=== PATIENT | male | born 1980 | race Caucasian/White ===

== ENCOUNTER 2019-09-12 01:27 | Inpatient (IN) | payer OTHER ==
[~2019-09-12] VITALS: Ht 175.3 cm; Wt 86.2 kg
[2019-09-12 01:30] VITALS: Ht 175.3 cm; Wt 86.2 kg
--- NOTE | 2019-09-12 01:31 | NUR ---
PATIENT BIB AMBULANCE TO ED WITH C/C OF HEMATEMESIS PIPING ENGINEER TO ED. PER MEDIC, PATIENT VOMITED "100CC'S OF BRIGHT RED BLOOD" PIPING ENGINEER TO ED. PATIENT NOTED TO HAVE BLOOD ON LIPS AND TEETH. PATIENT, FROM [facility], REPORTS HE HAS HAD "BLACK STOOLS" X2 DAYS AND ABDOMINAL PAIN X1 DAY. PATIENT IS NOT ACTIVELY VOMITING AT THIS TIME. EMESIS BAG PROVIDED. PATIENT COMPLAINING OF ABDOMINAL PAIN, APPEARS PALE, SKIN COOL TO TOUCH. PATIENT REPORTS NO PREVIOUS HX OF SIMILAR EPISODE. PATIENT DENIES FEVER, COUGH, OR ANY OTHER RELATED OR ABNORMAL SYMPTOMS. PATIENT PLACED ON FULL BUCKLE AND BUTTON MAKER AND PULSE OX. TWO IV'S ESTABLISHED. DR. SMITH AT BEDSIDE FOR MSE.
[2019-09-12 02:05] LABS: BASOPHIL % 0.4 % (0-2); BILIRUBIN TOTAL 0.52 mg/dL (0.20-1.00); CALCIUM 7.6 mg/dL (8.5-10.1); CARBON DIOXIDE 15.6 mmol/L (21-32); CREATININE SERUM 1.4 mg/dL (0.7-1.3); PLATELET COUNT 99 x10^3mcL (130-400); RED CELL DISTRIBUTION WIDTH 13.4 % (11.5-14.5)
[2019-09-12 02:08] LABS: ALBUMIN 2.5 g/dL (3.4-5.0); TOTAL PROTEIN, SERUM 5.7 g/dL (6.4-8.2)
[2019-09-12 02:09] LABS: POTASSIUM SERUM 2.6 mmol/L (3.5-5.1)
--- NOTE | 2019-09-12 02:36 | NUR ---
PATIENT MEDICATED PER MD ORDER. PT VERBALIZED UNDERSTANDING OF MEDICATION PRIOR TO ADMINISTRATION. PATIENT'S SANDOSTATIN MOVED TO LEFT WRIST 20GAUGH IV.
[2019-09-12] MEDS ORDERED: COG1 PO (03:11)
[2019-09-12] MEDS ORDERED: [UNRECOGNIZED DRUG - CODE] IM (03:12)
[2019-09-12] MEDS ORDERED: MIRTAZAPINE45 M2 PO (03:13)
[2019-09-12] MEDS ORDERED: KRISTALOSE20 GM PO (03:13)
[2019-09-12] MEDS ORDERED: PRAZOSIN HCL2 MG PO (03:14)
[2019-09-12] MEDS ORDERED: OMEPRAZOLE20 M4 PO (03:14)
[2019-09-12] MEDS ORDERED: PROPRANOLOL HCL10 MG PO (03:15)
[2019-09-12] MEDS ORDERED: RISPERIDONE3 M2 PO (03:15)
--- NOTE | 2019-09-12 03:25 | NUR ---
PATIENT RESTING IN GURNEY COMFORTABLY, IN NO VISIBLE PAIN OR DISCOMFORT, RESP E/U, NAD NOTED.
--- NOTE | 2019-09-12 03:45 | NUR ---
PATIENT MOVED TO BED 3 DUE TO TELE HOLD STATUS. CIM PRODUCT DEVELOPER CRUZ AT BEDSIDE.
--- NOTE | 2019-09-12 04:03 | NUR ---
DR. RENTERIA AWARE OF PATIENT MEETING SEPTIC CRITERIA, RECEIVED TELEPHONE READ BACK ORDER FOR ADDITONAL LITER OF FLUID AND LACTIC ACID DRAW.
--- NOTE | 2019-09-12 04:05 | NUR ---
SECOND LITER OF NS INITIATED PER SEPSIS PROTOCOL.
--- NOTE | 2019-09-12 04:45 | NUR ---
DR. SIMONS MADE AWARE OF PATIENT'S LACTIC ACID 11.3. PER BHAVANA COSTA FOR LAB TO DRAW BLOOD CULTURES AT 10AM. NO ORDERS ANTICIPATED AT THIS TIME.
--- NOTE | 2019-09-12 04:48 | NUR ---
SPOKE WITH DR. SIMONS AGAIN TO VERIFY IF HE WOULD LIKE TO ORDER AN ANTIBIOTIC AT THIS TIME. PER DR. SIMONS, NO ORDERS WILL BE IMPLEMENTED AT THIS TIME.
--- NOTE | 2019-09-12 05:31 | NUR ---
PATIENT IS RESTING COMFORTABLY IN GURNEY, AWAKE, AAOX4, RESP E/U, IN NO APPARENT PAIN, NAD NOTED. CORRECTIONAL OFFICERS AT BEDSIDE.
--- NOTE | 2019-09-12 06:16 | NUR ---
PATIENT REQUESTED TO USE RESTROOM. PROVIDED WITH URINAL, APPROX 150CC'S OF CLEAR, YUDITH URINE PRODUCED. URINE SAMPLE IN URINE ROOM.
--- NOTE | 2019-09-12 07:15 | NUR ---
REPORT GIVEN TO JONATHON XIE TO ASSUME CARE OF PT.
--- NOTE | 2019-09-12 07:20 | NUR ---
RECIEVED REPORT FROM MARIA INES XIE. WILL ASSUME CARE OF PT. PT CURRENTLY LYING IN POSITION OF COMFORT IN ER [facility] WITH TWO GUARDS AT BEDSIDE. PT NOTED BILATERAL LEG HANDCUFFS IN PLACE. NO ACUTE DISTRESS NOTED AT THIS TIME. WILL CONTINUE TO MONITOR.
--- NOTE | 2019-09-12 07:22 | NUR ---
REPORT GIVEN SALVADOR XIE TO ASSUME CARE OF PT.
--- NOTE | 2019-09-12 08:00 | NUR ---
RECEIVED PT FROM ED. AOX4 ABLE TO MAKE NEEDS KNOWN. ON TELE 16# ST AT 141 AFTER AMBULATING TO BATHROOM. LUNGS CTA, DENIES SOB/COUGH AT THE TIME. BOWEL SOUNDS ACTIVE, ABODMEN SOFT/ROUND, DENIES N/V/D. C/O DARK BLOODY STOOL. VOIDS FREELY. SKIN INTACT, DENIES PAIN AT THIS TIME. IV TO RAC, LAC, AND RW PATENT, ALL INFUSING. CALL LIGHT IN REACH, WILL CONTINUE TO MONITOR.
--- NOTE | 2019-09-12 09:30 | NUR ---
PT SEEN BY DR MEJIA. ORDERED EGD. CONSENT AND CHECKLIST DONE. PT TAKEN DOWN FOR PROCEDURE.
[2019-09-12 12:12] VITALS: BP 94/57
--- NOTE | 2019-09-12 15:16 | NUR ---
NEW ORDER FROM DR. SIMONS TO TEST FOR COVID-19. SPECIMEN COLLECTED AND TAKEN TO LAB. PER CASE MANAGEMENT, PT TESTED POSITIVE ON 08/15/19. PT STATED HE WAS ON ISOLATION FOR 2 WEEKS.
[2019-09-12 16:54] VITALS: BP 95/46
[2019-09-12 19:25] VITALS: BP 108/53
--- NOTE | 2019-09-12 19:25 | NUR ---
RECEIVED PT AWAKE ALERT AND VERBALLY RESPONSIVE.BREATHING EASY AND NON-LABORED.DENIES CHESTPAIN AT THIS TIME.BP 108/53 MMHG,HR 120'S.ENCOURAGED BEDREST AT THIS TIME.HR GOES HIGH ON ACTIVITY.DENIES ABDOMINAL PAIN.NO N/V NOTED.STILL WITH EPISODES OF BLOODY STOOL.S/P EGD TODAY.SANDOSTATIN DRIP @ 25 ML/HR INFUSING.K-RIDER INFUSING ALSO AND TOLERATING WELL.BSC AND URINALS PROVIDED.GUARDS AT BEDSIDE.WILL CONTINUE TO MONITOR.
--- NOTE | 2019-09-12 21:40 | NUR ---
RECEIVED A CALL FROM [place] .BED COORDINATOR FOR [facility].PT ACCEPTED BUT NO ROOM AVAILABLE YET AT THIS TIME.
--- NOTE | 2019-09-13 04:37 | NUR ---
PT SLEPT WELL ALL NIGHT WITH GUARDS AT BEDSIDE.DENIES CHESTPAIN.ASSISTED TO BSC AND HAD A WATERY REDDISH COLORED BM X2.SANDOSTATIN DRIP @ 25 ML/HR.ON D5NS WITH 20K @ 125 ML/HR AND TOLERATING WELL.NO N/V NOTED.NO CALLS RECEIVED FROM [facility] FOR POSSIBLE ROOM.ALL NEEDS MET.WILL CONTINUE TO MONITOR.
[2019-09-13 06:09] VITALS: BP 96/43
--- NOTE | 2019-09-13 06:10 | NUR ---
LATEST BP THIS AM @ 96/43 MG/DL.IV TO L WRIST WITH SOME TENDERNESS AND SWELLING.ICE PACKS APPLIED.RECIVED A CALL FROM IRENE FROM [facility] AND GAVE A ROOM @ UN[address] BED 2515.PHONE #[phone].WILL INFORM
[2019-09-13 06:17] VITALS: BP 96/43
--- NOTE | 2019-09-13 06:58 | NUR ---
REPORT GIVEN TO GABE-RN.ALL INFORMATION PROVIDED.WILL ENDORSE TO AM NURSE.
--- NOTE | 2019-09-13 07:49 | NUR ---
RECEIVED PT FROM PM NURSE. PT IS AWAKE AND RESTING COMFORTABLY IN BED AT THIS TIME. ABLE TO MAKE NEEDS KNOWN. PT IS A/OX4. LUNG SOUNDS CTA. BREATHING E/U ON RA. TELE #16. DENIES CP/PRESSURE. PULSES EVEN AND PALPABLE. NO EDEMA NOTED. ACTIVE BSX4. ABD SOFT AND ROUND. LBM WAS 09/13/19. REPORTS BLOOD IN STOOL. VOIDS FREELY. URINAL AND BSC BY BEDSIDE. GENERALIZED WEAKNESS NOTED. SKIN INTACT. NO C/O PAIN AT THIS TIME. IV 18G ON LAC CURRENTLY INFUSING D5NS WITH 20 MEQ K AT 125ML AND SANDOSTATIN DRIP RUNNING AT 25ML/HR. BED AT THE LOWEST POSITION. CALL LIGHT WITHIN REACH. GUARDS AT BEDSIDE. WILL CONTINUE TO MONITOR.
--- NOTE | 2019-09-13 08:30 | NUR ---
SPOKE TO [facility] GUARD TO ARRANGE ABDIEL CAR TRANSPORT FOR PT TRANSFER TO [facility] AND THEN CALLED CASE MANAGEMENT TO ARRANGE MEDICAL TRANSPORT.
--- NOTE | 2019-09-13 08:33 | NUR ---
RECEIVED A CALL FROM SERGEANT REDDY AND MADE HIM AWARE THAT ABDIEL CAR NEEDED FOR TRANSFER AND I TRANSFERRED HIM AT THE [facility] TO COORDINATED THE ABDIEL CAR TIME. RACHELE XIE ASSIGNED TO THIS PT MADE AWARE OF ABOVE.
[2019-09-13 08:59] VITALS: BP 93/33
[2019-09-13 10:05] LABS: CALCIUM 6.8 mg/dL (8.5-10.1); CARBON DIOXIDE 23.6 mmol/L (21-32); CHLORIDE SERUM 113 mmol/L (98-107); GFR1 > 60 mL/min; GLUCOSE SERUM 146 mg/dL (74-106); POTASSIUM SERUM 4.1 mmol/L (3.5-5.1); SODIUM SERUM 143 mmol/L (136-145)
--- NOTE | 2019-09-13 10:10 | NUR ---
RECEIVED CALL FROM [facility] THAT THEY WILL BE ARRIVING AT APPROXIMATELY 10AM. NOTIFIED GUARDS OF THE ETA. GUARDS ACKNOWLEDGED AND INFORMED ME THAT THE ABDIEL CAR WILL BE ARRIVING AT 10AM WELL. IV AND TELE MONITOR REMOVED.
--- NOTE | 2019-09-13 10:20 | NUR ---
[facility] ARRIVED AND PICKED UP PT VIA GURNEY WITH 3 EMT ASSISTS. PT LEFT IN STABLE CONDITION ACCOMPANIED BY GUARDS. LAST SET OF VITALS ARE FOLLOWS: 99.2 108/64 100 18 96%.
[2019-09-13 10:30] LABS: PLATELET COUNT 71 x10^3mcL (130-400); RED CELL DISTRIBUTION WIDTH 14.9 % (11.5-14.5)
[2019-09-13 11:31] LABS: BAND NEUTROPHIL 1 % (0-10); MONOCYTE 5 % (0-7); SEGMENTED NEUTROPHILS 71 % (37-75); rbc morphology (normal/abnorm) ABNORMAL (NORMAL)
== END 2019-09-13 10:20 | disposition short-term general hospital (02) | DRG 432 ==
LOC: ED 01:27 → DU 02:33
PROVIDERS: Internal Medicine Gastroenterology; Specialist; ADMIT Internal Medicine; ATTEND Internal Medicine
PROC: 0DB68ZX Excision of Stomach, Via Natural or Artificial Opening Endoscopic, Diagnostic (ICD-10-PCS; principal; 2019-09-12 09:15)
DX: K74.60 Unspecified cirrhosis of liver (principal); I85.11 Secondary esophageal varices with bleeding; Z20.828 Contact with and (suspected) exposure to other viral communicable diseases; E87.6 Hypokalemia; I95.9 Hypotension, unspecified; E86.0 Dehydration; D69.6 Thrombocytopenia, unspecified; D72.829 Elevated white blood cell count, unspecified; D50.0 Iron deficiency anemia secondary to blood loss (chronic)
CPT/HCPCS: 43235; C9113; G0378; J1200; J1610; J2250; J2310; J2354; J2405; J2916; J3010; J3475; J3480; J3490; J7030; J7040; J7042; Q0092; U0003-CS